=== PATIENT | female | born 1955 | race Caucasian/White ===

== ENCOUNTER 2022-07-14 14:47 | Outpatient (REF) | payer MEDICARE, OTHER, SELFPAY ==
[2022-07-14 15:09] LABS: MANUAL DIFF FLAG NO
[2022-07-14 17:01] LABS: Basophils Absolute Auto 0.1 X10*3/uL (0.0-0.2); Basophils Percent Auto 0.7 % (0-2); Eosinophils Absolute Auto 0.1 X10*3/uL (0.0-0.4); Eosinophils Percent Auto 1.7 % (0-4); Hematocrit 47.9 % (37.0-47.0); Hemoglobin 15.6 g/dl (12.0-16.0); Imm Gran Abs Auto 0.02 X10*3/uL (0.00-0.03); Imm Gran Pct Auto 0.3 % (0.0-0.4); Lymphocytes Absolute Auto 1.5 X10*3/uL (1.2-4.9); Lymphocytes Percent Auto 20.3 % (20-40); Mean Corpuscular HGB Conc 32.6 g/dl (31.0-35.0); Mean Corpuscular Hemoglobin 31.6 pg (27.0-33.0); Mean Platelet Volume 11.9 fL (9.4-12.3); Monocytes Absolute Auto 0.6 X10*3/uL (0.1-1.2); Monocytes Percent Auto 7.7 % (2-11); Neutrophils Percent Auto 69.3 % (45-73); Platelet Count 251 X10*3/uL (160-400); Red Blood Count 4.94 X10*6/uL (4.20-5.50); Red Cell Distribution Width 13.1 % (11.0-16.0); White Blood Count 7.2 X10*3/uL (4.8-10.8)
[2022-07-14 17:27] LABS: Anion Gap 15 (12-20); Blood Urea Nitrogen 14 mg/dL (9-16); Calcium 9.7 mg/dL (8.4-10.2); Carbon Dioxide 26 mmol/L (22-29); Chloride 105 mmol/L (96-108); Estimated Glomerular Filt Rate > 60; Glucose Random 105 mg/dL (60-115); Potassium 4.4 mmol/L (3.3-5.1); Sodium 142 mmol/L (135-145)
[2022-07-14 17:42] LABS: Thyroid Stimulating Hormone 2.29 uIU/mL (0.32-4.0)
[2022-07-14 18:12] LABS: Erythrocyte Sedimentation Rate 5 MM/HR (0-20)
[2022-07-21 19:14] LABS: Acetylcholine Recept. Blocking <15 (<15)
[2022-07-22 18:04] LABS: Acetylcholine Receptor Binding <0.30 nmol/L
[2022-07-27 17:33] LABS: Acetylcholine Recep Modulating 12
== END 2022-07-14 14:48 | disposition home or self-care (01) ==
LOC: HO.LAB 14:47
PROVIDERS: PCP Internal Medicine; Visit Provider Psychiatry & Neurology Neurology
DX: G47.00 Insomnia, unspecified (principal)
CPT/HCPCS: 36415; 80048; 82550; 83519; 84436; 84443; 85025; 85652

== ENCOUNTER 2022-08-05 10:43 | Outpatient (REF) | payer MEDICARE, OTHER, SELFPAY ==
[2022-08-05 13:19] LABS: Folate 7.3 ng/mL (> or = 4.0); Vitamin B12 241 pg/mL (200-900)
[2022-08-11 17:53] LABS: Methylmalonic Acid 165 nmol/L (87-318)
== END 2022-08-05 10:44 | disposition home or self-care (01) ==
LOC: HO.LAB 10:43
PROVIDERS: PCP Internal Medicine; Visit Provider Psychiatry & Neurology Neurology
DX: G31.84 Mild cognitive impairment of uncertain or unknown etiology (principal)
CPT/HCPCS: 36415; 82607; 82746; 83921

== ENCOUNTER 2022-08-31 11:56 | Outpatient (REF) | payer MEDICARE, OTHER, SELFPAY | END 2022-08-31 11:57 | disposition home or self-care (01) | LOC: HO.MDS 11:56 | PROVIDERS: Visit Provider Psychiatry & Neurology Neurology | DX: G61.81 Chronic inflammatory demyelinating polyneuritis (principal) | CPT/HCPCS: 96365; 96366; J1569 ==

== ENCOUNTER 2022-09-01 11:52 | Outpatient (REF) | payer MEDICARE, OTHER, SELFPAY | END 2022-09-01 11:53 | disposition home or self-care (01) | LOC: HO.MDS 11:52 | PROVIDERS: Visit Provider Psychiatry & Neurology Neurology | DX: G61.81 Chronic inflammatory demyelinating polyneuritis (principal) | CPT/HCPCS: 96365; 96366; J1569 ==

== ENCOUNTER 2022-09-02 11:54 | Outpatient (REF) | payer MEDICARE, OTHER, SELFPAY | END 2022-09-02 11:55 | disposition home or self-care (01) | LOC: HO.MDS 11:54 | PROVIDERS: Visit Provider Psychiatry & Neurology Neurology | DX: G61.81 Chronic inflammatory demyelinating polyneuritis (principal) | CPT/HCPCS: 96365; 96366; J1569 ==

== ENCOUNTER 2022-09-03 11:43 | Outpatient (REF) | payer MEDICARE, OTHER, SELFPAY | END 2022-09-03 11:44 | disposition home or self-care (01) | LOC: HO.MDS 11:43 | PROVIDERS: Visit Provider Psychiatry & Neurology Neurology | DX: G61.81 Chronic inflammatory demyelinating polyneuritis (principal) | CPT/HCPCS: 96365; 96366; J1569 ==

== ENCOUNTER 2022-09-04 11:42 | Outpatient (REF) | payer MEDICARE, OTHER, SELFPAY | END 2022-09-04 11:43 | disposition home or self-care (01) | LOC: HO.MDS 11:42 | PROVIDERS: Visit Provider Psychiatry & Neurology Neurology | DX: G61.81 Chronic inflammatory demyelinating polyneuritis (principal) | CPT/HCPCS: 96365; 96366; J1569 ==

== ENCOUNTER 2022-10-05 11:44 | Outpatient (REF) | payer MEDICARE, OTHER, SELFPAY | END 2022-10-05 11:45 | disposition home or self-care (01) | LOC: HO.MDS 11:44 | PROVIDERS: Visit Provider Psychiatry & Neurology Neurology | DX: G61.81 Chronic inflammatory demyelinating polyneuritis (principal) | CPT/HCPCS: 96365; 96366; J1569 ==

== ENCOUNTER 2022-10-06 11:54 | Outpatient (REF) | payer MEDICARE, OTHER, SELFPAY | END 2022-10-06 11:55 | disposition home or self-care (01) | LOC: HO.MDS 11:54 | PROVIDERS: Visit Provider Psychiatry & Neurology Neurology | DX: G61.81 Chronic inflammatory demyelinating polyneuritis (principal) | CPT/HCPCS: 96365; 96366; J1569 ==

== ENCOUNTER 2022-10-07 11:43 | Outpatient (REF) | payer MEDICARE, OTHER, SELFPAY | END 2022-10-07 11:44 | disposition home or self-care (01) | LOC: HO.MDS 11:43 | PROVIDERS: Visit Provider Psychiatry & Neurology Neurology | DX: G61.81 Chronic inflammatory demyelinating polyneuritis (principal) | CPT/HCPCS: 96365; 96366; J1569 ==

== ENCOUNTER 2022-10-08 11:35 | Outpatient (REF) | payer MEDICARE, OTHER, SELFPAY | END 2022-10-08 11:36 | disposition home or self-care (01) | LOC: HO.MDS 11:35 | PROVIDERS: Visit Provider Psychiatry & Neurology Neurology | DX: G61.81 Chronic inflammatory demyelinating polyneuritis (principal) | CPT/HCPCS: 96365; 96366; J1569 ==

== ENCOUNTER 2022-10-09 10:46 | Outpatient (REF) | payer MEDICARE, OTHER, SELFPAY | END 2022-10-09 10:47 | disposition home or self-care (01) | LOC: HO.MDS 10:46 | PROVIDERS: Visit Provider Psychiatry & Neurology Neurology | DX: G61.81 Chronic inflammatory demyelinating polyneuritis (principal) | CPT/HCPCS: 96365; 96366; J1569 ==

== ENCOUNTER 2022-10-23 13:32 | Outpatient (REF) | payer MEDICARE, OTHER, SELFPAY ==
--- NOTE | ~2022-10-23 | MR_ITS ---
EXAMINATION: MR BRAIN WITHOUT CONTRAST CLINICAL INFORMATION: Mild cognitive impairment. COMPARISON: None. TECHNIQUE: Multiplanar, multisequence imaging of the brain was performed without contrast. FINDINGS: No diffusion abnormalities are identified to suggest an acute infarct. No mass effect or midline shift is seen. 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 Mild chronic white matter microangiopathic changes noted. Generalized parenchymal volume loss noted with mild ex vacuo dilatation of the ventricles. No extra-axial fluid collections are seen. The brainstem and cerebellum are normal. The gradient refocused acquisition is normal. The craniovertebral junction, marrow signal, and midline structures are normal. The major intracranial flow voids at the level of the [place] of [place] are preserved. The dural venous sinus flow voids are maintained. The mastoid air cells and paranasal sinuses are well aerated. Of note, there are significant fatty atrophic changes in the tongue. MR/MR head/brain wo con IMPRESSION: No acute intracranial process. 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 Mild chronic white matter microangiopathy and generalized parenchymal volume loss.
== END 2022-10-23 13:33 | disposition home or self-care (01) ==
LOC: HO.MRI 13:32
PROVIDERS: PCP Internal Medicine; Visit Provider Psychiatry & Neurology Neurology
DX: G31.84 Mild cognitive impairment of uncertain or unknown etiology (principal)
CPT/HCPCS: 70551

== ENCOUNTER 2022-11-09 10:40 | Outpatient (REF) | payer MEDICARE, OTHER, SELFPAY | END 2022-11-09 10:41 | disposition home or self-care (01) | LOC: HO.MDS 10:40 | PROVIDERS: Visit Provider Psychiatry & Neurology Neurology | DX: G61.81 Chronic inflammatory demyelinating polyneuritis (principal) | CPT/HCPCS: 96365; 96366; J1569 ==

== ENCOUNTER 2022-11-10 10:58 | Outpatient (REF) | payer MEDICARE, OTHER, SELFPAY | END 2022-11-10 10:59 | disposition home or self-care (01) | LOC: HO.MDS 10:58 | PROVIDERS: Visit Provider Psychiatry & Neurology Neurology | DX: G61.81 Chronic inflammatory demyelinating polyneuritis (principal) | CPT/HCPCS: 96365; 96366; J1569 ==

== ENCOUNTER 2022-11-11 10:52 | Outpatient (REF) | payer MEDICARE, OTHER, SELFPAY | END 2022-11-11 10:53 | disposition home or self-care (01) | LOC: HO.MDS 10:52 | PROVIDERS: Visit Provider Psychiatry & Neurology Neurology | DX: G61.81 Chronic inflammatory demyelinating polyneuritis (principal) | CPT/HCPCS: 96365; 96366; J1569 ==

== ENCOUNTER 2022-11-12 10:51 | Outpatient (REF) | payer MEDICARE, OTHER, SELFPAY | END 2022-11-12 10:52 | disposition home or self-care (01) | LOC: HO.MDS 10:51 | PROVIDERS: Visit Provider Psychiatry & Neurology Neurology | DX: G61.81 Chronic inflammatory demyelinating polyneuritis (principal) | CPT/HCPCS: 96365; 96366; J1569 ==

== ENCOUNTER 2022-11-13 11:04 | Outpatient (REF) | payer MEDICARE, OTHER, SELFPAY | END 2022-11-13 11:05 | disposition home or self-care (01) | LOC: HO.MDS 11:04 | PROVIDERS: Visit Provider Psychiatry & Neurology Neurology | DX: G61.81 Chronic inflammatory demyelinating polyneuritis (principal) | CPT/HCPCS: 96365; 96366; J1569 ==

== ENCOUNTER 2022-12-03 12:00 | Day surgery (SDC) | payer MEDICARE, OTHER, SELFPAY ==
--- NOTE | ~2022-12-03 | IR_ITS ---
PROCEDURE: IR INSERTION OF SUBCUTANEOUS PORT WITH ULTRASOUND AND FLUOROSCOPIC GUIDANCE CLINICAL INFORMATION: 67-year-old female with need for long-term IV access. COMPARISON: None available. TECHNIQUE: All elements of maximal sterile barrier technique followed including use of cap, mask, sterile gown, sterile gloves, a sterile full body drape and hand hygiene. Also followed skin preparation with 2% chlorhexidine for cutaneous antisepsis, and sterile ultrasound preparation with sterile gel and probe cover when applicable. SENIOR INTEGRATION ARCHITECT: Leena Thompson MD FSIR ANESTHESIA: IV moderate sedation with intravenous fentanyl and Versed was administered under my direct supervision with continuous physiologic monitoring for a total of 17 minutes. Procedure in detail: Informed and written consent was obtained. The patient was positioned supine on the angiography table. Sterile preparation of the right neck and chest was performed. Ultrasound of the right neck showed a patent internal jugular vein. 1% lidocaine was injected subcutaneously and extended to the edge of the jugular vein under ultrasound guidance. A small incision was made in the skin with a #11 blade. Through the incision and under ultrasound guidance with permanent recordings and direct visualization of needle entry into the vein, the right internal jugular vein was catheterized in an antegrade fashion. Over a wire, the tract was dilated and the peel-away sheath was left in place. At the planned location for the port located below the right clavicle, 1% lidocaine with epinephrine was administered subcutaneously and the local anesthesia was extended along the planned subcutaneous tract for the catheter. A small incision was made in the skin with a #15 blade. Blunt dissection was performed to create a pocket for the port. Next, we tunneled the port catheter from the port site to the neck incision site. The catheter was inserted into the peel-away sheath. It terminates at the right atrium. We cut the catheter to length and connected it to the port, which was inserted into the pocket. The pocket was irrigated with antibiotic solution. The pocket was closed with interrupted 2-0 Vicryl suture. Topical Dermabond was applied. An overlying sterile dressing was placed. The port was tested and flushes and aspirates appropriately. It was locked with heparin. A saved fluoroscopic image shows that the catheter terminates in the right atrium. Summary: Successful placement of a subcutaneous port via the right internal jugular vein under fluoroscopic and ultrasound guidance.
[2022-12-03 12:15] LABS: MANUAL DIFF FLAG NO
[2022-12-03 12:16] LABS: Basophils Percent Auto 0.2 % (0-2); Eosinophils Percent Auto 0.2 % (0-4); Hematocrit 43.2 % (37.0-47.0); Hemoglobin 14.3 g/dl (12.0-16.0); Imm Gran Abs Auto 0.05 X10*3/uL (0.00-0.03); Imm Gran Pct Auto 0.5 % (0.0-0.4); Lymphocytes Absolute Auto 1.8 X10*3/uL (1.2-4.9); Lymphocytes Percent Auto 18.1 % (20-40); Mean Corpuscular HGB Conc 33.1 g/dl (31.0-35.0); Mean Corpuscular Hemoglobin 32.2 pg (27.0-33.0); Mean Corpuscular Volume 97.3 fL (80.0-98.0); Mean Platelet Volume 9.8 fL (9.4-12.3); Monocytes Absolute Auto 0.4 X10*3/uL (0.1-1.2); Monocytes Percent Auto 3.9 % (2-11); Neutrophils Absolute Auto 7.5 x10*3/uL (2.0-8.3); Neutrophils Percent Auto 77.1 % (45-73); Platelet Count 221 X10*3/uL (160-400); Red Blood Count 4.44 X10*6/uL (4.20-5.50); Red Cell Distribution Width 14.4 % (11.0-16.0); White Blood Count 9.8 X10*3/uL (4.8-10.8)
[2022-12-03 12:17] VITALS: BMI 25.7
[2022-12-03 12:22] LABS: INTERNATIONAL NORM RATIO 0.8 (0.9-1.1); Prothrombin Time 9.9 SEC (11.1-13.3)
[2022-12-03 12:25] LABS: Partial Thromboplastin Time 25.9 SEC (26.0-36.4)
[2022-12-03 12:32] LABS: Anion Gap 17 (12-20); Blood Urea Nitrogen 14 mg/dL (9-16); Carbon Dioxide 23 mmol/L (22-29); Chloride 103 mmol/L (96-108); Creatinine Clr Calc Pharmacy 62.2; Estimated Glomerular Filt Rate > 60; Potassium 4.5 mmol/L (3.3-5.1); Sodium 138 mmol/L (135-145)
[2022-12-03] MEDS: Heparin Sodium,Porcine Flush 500 UNIT/5 ML SYRINGE IVFLUSH (15:36)
[2022-12-03] MEDS: Lidocaine HCl 1%/Epi 1:100,000 10 ML VIAL INFILTRATI (15:36)
[2022-12-03] MEDS: Lidocaine HCl 1 % MPF 30 ML VIAL 20 ML SUBCUT (15:37)
[2022-12-03 15:40] VITALS: BP 137/79; PULSE 83; RESP 15; TEMP 36.2; O2SAT 98
[2022-12-03 15:55] VITALS: BP 133/72; PULSE 91; RESP 13; O2SAT 98
[2022-12-03 16:10] VITALS: BP 150/85; PULSE 89; RESP 18; TEMP 36.8; O2SAT 99
== END 2022-12-03 16:43 | disposition home or self-care (01) ==
PROVIDERS: Radiology Diagnostic Radiology; Radiology Vascular & Interventional Radiology; PCP Internal Medicine; Visit Provider Psychiatry & Neurology Neurology
DX: G61.81 Chronic inflammatory demyelinating polyneuritis (principal); G31.84 Mild cognitive impairment of uncertain or unknown etiology; G62.9 Polyneuropathy, unspecified; I10 Essential (primary) hypertension; M19.90 Unspecified osteoarthritis, unspecified site; Z79.899 Other long term (current) drug therapy; Z98.890 Other specified postprocedural states
CPT/HCPCS: 36415; 36561; 76937; 80051; 82565; 84520; 85025; 85610; 85730; 99152; C1769; C1788; J0690; J1642; J2250; J3010

== ENCOUNTER → 2022-12-03 13:40 | Outpatient (BNV) | payer MEDICARE, OTHER, SELFPAY | PROVIDERS: PCP Internal Medicine; Visit Provider Radiology Vascular & Interventional Radiology | DX: R18.8 Other ascites (principal) | CPT/HCPCS: 36561; 49083; 76937; 77001 ==

== ENCOUNTER 2022-12-07 10:43 | Outpatient (REF) | payer MEDICARE, OTHER, SELFPAY | END 2022-12-07 10:44 | disposition home or self-care (01) | LOC: HO.MDS 10:43 | PROVIDERS: Visit Provider Psychiatry & Neurology Neurology | DX: G61.81 Chronic inflammatory demyelinating polyneuritis (principal) | CPT/HCPCS: 96365; 96366; J1569 ==

== ENCOUNTER 2022-12-08 10:58 | Outpatient (REF) | payer MEDICARE, OTHER, SELFPAY | END 2022-12-08 10:59 | disposition home or self-care (01) | LOC: HO.MDS 10:58 | PROVIDERS: Visit Provider Psychiatry & Neurology Neurology | DX: G61.81 Chronic inflammatory demyelinating polyneuritis (principal) | CPT/HCPCS: 96365; 96366; J1569; J1642 ==

== ENCOUNTER 2022-12-09 10:50 | Outpatient (REF) | payer MEDICARE, OTHER, SELFPAY | END 2022-12-09 10:51 | disposition home or self-care (01) | LOC: HO.MDS 10:50 | PROVIDERS: Visit Provider Psychiatry & Neurology Neurology | DX: G61.81 Chronic inflammatory demyelinating polyneuritis (principal) | CPT/HCPCS: 96365; 96366; J1569; J1642 ==

== ENCOUNTER 2022-12-10 10:53 | Outpatient (REF) | payer MEDICARE, OTHER, SELFPAY | END 2022-12-10 10:54 | disposition home or self-care (01) | LOC: HO.MDS 10:53 | PROVIDERS: Visit Provider Psychiatry & Neurology Neurology | DX: G61.81 Chronic inflammatory demyelinating polyneuritis (principal) | CPT/HCPCS: 96365; 96366; J1569; J1642 ==

== ENCOUNTER 2022-12-11 10:36 | Outpatient (REF) | payer MEDICARE, OTHER, SELFPAY | END 2022-12-11 10:37 | disposition home or self-care (01) | LOC: HO.MDS 10:36 | PROVIDERS: Visit Provider Psychiatry & Neurology Neurology | DX: G61.81 Chronic inflammatory demyelinating polyneuritis (principal) | CPT/HCPCS: 96365; 96366; J1569; J1642 ==

== ENCOUNTER 2023-01-04 10:37 | Outpatient (REF) | payer MEDICARE, OTHER, SELFPAY | END 2023-01-04 10:38 | disposition home or self-care (01) | LOC: HO.MDS 10:37 | PROVIDERS: Visit Provider Psychiatry & Neurology Neurology | DX: G61.81 Chronic inflammatory demyelinating polyneuritis (principal) | CPT/HCPCS: 96365; 96366; J1569; J1642 ==

== ENCOUNTER 2023-01-05 10:45 | Outpatient (REF) | payer MEDICARE, OTHER, SELFPAY | END 2023-01-05 10:46 | disposition home or self-care (01) | LOC: HO.MDS 10:45 | PROVIDERS: Visit Provider Psychiatry & Neurology Neurology | DX: G61.81 Chronic inflammatory demyelinating polyneuritis (principal) | CPT/HCPCS: 96365; 96366; J1569; J1642 ==

== ENCOUNTER 2023-01-06 10:42 | Outpatient (REF) | payer MEDICARE, OTHER, SELFPAY | END 2023-01-06 10:43 | disposition home or self-care (01) | LOC: HO.MDS 10:42 | PROVIDERS: Visit Provider Psychiatry & Neurology Neurology | DX: G61.81 Chronic inflammatory demyelinating polyneuritis (principal) | CPT/HCPCS: 96365; 96366; J1569; J1642 ==

== ENCOUNTER 2023-01-07 10:38 | Outpatient (REF) | payer MEDICARE, OTHER, SELFPAY | END 2023-01-07 10:39 | disposition home or self-care (01) | LOC: HO.MDS 10:38 | PROVIDERS: Visit Provider Psychiatry & Neurology Neurology | DX: G61.81 Chronic inflammatory demyelinating polyneuritis (principal) | CPT/HCPCS: 96365; 96366; J1569; J1642 ==

== ENCOUNTER 2023-01-08 10:32 | Outpatient (REF) | payer MEDICARE, OTHER, SELFPAY | END 2023-01-08 10:33 | disposition home or self-care (01) | LOC: HO.MDS 10:32 | PROVIDERS: Visit Provider Psychiatry & Neurology Neurology | DX: G61.81 Chronic inflammatory demyelinating polyneuritis (principal) | CPT/HCPCS: 96365; 96366; J1569; J1642 ==

== ENCOUNTER 2023-02-01 10:38 | Outpatient (REF) | payer MEDICARE, OTHER, SELFPAY | END 2023-02-01 10:39 | disposition home or self-care (01) | LOC: HO.MDS 10:38 | PROVIDERS: Visit Provider Psychiatry & Neurology Neurology | DX: G61.81 Chronic inflammatory demyelinating polyneuritis (principal) | CPT/HCPCS: 96365; 96366; J1569; J1642 ==

== ENCOUNTER 2023-02-02 10:32 | Outpatient (REF) | payer MEDICARE, OTHER, SELFPAY | END 2023-02-02 10:33 | disposition home or self-care (01) | LOC: HO.MDS 10:32 | PROVIDERS: PCP Internal Medicine; Visit Provider Psychiatry & Neurology Neurology | DX: G61.81 Chronic inflammatory demyelinating polyneuritis (principal) | CPT/HCPCS: 96365; 96366; J1569; J1642 ==

== ENCOUNTER 2023-02-03 10:40 | Outpatient (REF) | payer MEDICARE, OTHER, SELFPAY | END 2023-02-03 10:41 | disposition home or self-care (01) | LOC: HO.MDS 10:40 | PROVIDERS: Visit Provider Psychiatry & Neurology Neurology | DX: G61.81 Chronic inflammatory demyelinating polyneuritis (principal) | CPT/HCPCS: 96365; 96366; J1569; J1642 ==

== ENCOUNTER 2023-02-04 10:32 | Outpatient (REF) | payer MEDICARE, OTHER, SELFPAY | END 2023-02-04 10:33 | disposition home or self-care (01) | LOC: HO.MDS 10:32 | PROVIDERS: Visit Provider Psychiatry & Neurology Neurology | DX: G61.81 Chronic inflammatory demyelinating polyneuritis (principal) | CPT/HCPCS: 96365; 96366; J1569; J1642 ==

== ENCOUNTER 2023-02-05 10:55 | Outpatient (REF) | payer MEDICARE, OTHER, SELFPAY | END 2023-02-05 10:56 | disposition home or self-care (01) | LOC: HO.MDS 10:55 | PROVIDERS: PCP Internal Medicine; Visit Provider Psychiatry & Neurology Neurology | DX: G61.81 Chronic inflammatory demyelinating polyneuritis (principal) | CPT/HCPCS: 96365; 96366; J1569; J1642 ==

== ENCOUNTER 2023-03-01 13:41 | Outpatient (REF) | payer MEDICARE, OTHER, SELFPAY | END 2023-03-01 13:42 | disposition home or self-care (01) | LOC: HO.MDS 13:41 | PROVIDERS: Visit Provider Psychiatry & Neurology Neurology | DX: G61.81 Chronic inflammatory demyelinating polyneuritis (principal) | CPT/HCPCS: 96365; 96366; J1569; J1642 ==

== ENCOUNTER 2023-03-02 10:42 | Outpatient (REF) | payer MEDICARE, OTHER, SELFPAY | END 2023-03-02 10:43 | disposition home or self-care (01) | LOC: HO.MDS 10:42 | PROVIDERS: Visit Provider Psychiatry & Neurology Neurology | DX: G61.81 Chronic inflammatory demyelinating polyneuritis (principal) | CPT/HCPCS: 96365; 96366; J1569; J1642 ==

== ENCOUNTER 2023-03-03 11:00 | Outpatient (REF) | payer MEDICARE, OTHER, SELFPAY | END 2023-03-03 11:01 | disposition home or self-care (01) | LOC: HO.MDS 11:00 | PROVIDERS: Visit Provider Psychiatry & Neurology Neurology | DX: G61.81 Chronic inflammatory demyelinating polyneuritis (principal) | CPT/HCPCS: 96365; 96366; J1569; J1642 ==

== ENCOUNTER 2023-03-04 10:43 | Outpatient (REF) | payer MEDICARE, OTHER, SELFPAY | END 2023-03-04 10:44 | disposition home or self-care (01) | LOC: HO.MDS 10:43 | PROVIDERS: Visit Provider Psychiatry & Neurology Neurology | DX: G61.81 Chronic inflammatory demyelinating polyneuritis (principal) | CPT/HCPCS: 96365; 96366; J1569; J1642 ==

== ENCOUNTER 2023-03-05 10:39 | Outpatient (REF) | payer MEDICARE, OTHER, SELFPAY | END 2023-03-05 10:40 | disposition home or self-care (01) | LOC: HO.MDS 10:39 | PROVIDERS: Visit Provider Psychiatry & Neurology Neurology | DX: G61.81 Chronic inflammatory demyelinating polyneuritis (principal) | CPT/HCPCS: 96365; 96366; J1569; J1642 ==

== ENCOUNTER 2023-04-19 10:38 | Outpatient (REF) | payer MEDICARE, OTHER, SELFPAY | END 2023-04-19 10:39 | disposition home or self-care (01) | LOC: HO.MDS 10:38 | PROVIDERS: Visit Provider Psychiatry & Neurology Neurology | DX: G61.81 Chronic inflammatory demyelinating polyneuritis (principal) | CPT/HCPCS: 96365; 96366; J1569; J1642 ==

== ENCOUNTER 2023-04-20 10:44 | Outpatient (REF) | payer MEDICARE, OTHER, SELFPAY ==
[2023-04-20] VITALS (7 sets, daily range): BP systolic 102–128; BP diastolic 58–75; PULSE 73–85; RESP 18; TEMP 37.4; O2SAT 98–99; BMI 27.1
[2023-04-20] MEDS: Immun Glob G(IgG)/Gly/IGA Ov50 300 ML IV (11:51)
== END 2023-04-20 10:45 | disposition home or self-care (01) ==
LOC: HO.MDS 10:44
PROVIDERS: Visit Provider Psychiatry & Neurology Neurology
DX: G61.81 Chronic inflammatory demyelinating polyneuritis (principal)
CPT/HCPCS: 96365; 96366; J1569; J1642

== ENCOUNTER 2023-04-21 10:45 | Outpatient (REF) | payer MEDICARE, OTHER, SELFPAY ==
[2023-04-21 11:03] VITALS: BMI 27.1
[2023-04-21 11:09] VITALS: PULSE 72; RESP 18; TEMP 36.7; O2SAT 98
[2023-04-21] MEDS: Heparin Sodium,Porcine Flush 50 UNITS, 0.9 % Sodium Chloride Flush 5 ML IVFLUSH ×2 (11:10→14:30)
[2023-04-21] MEDS: Immun Glob G(IgG)/Gly/IGA Ov50 300 ML IV (11:22)
[2023-04-21 12:12] VITALS: BP 127/69; PULSE 70; RESP 18
[2023-04-21 13:12] VITALS: BP 114/67; PULSE 71; RESP 18
[2023-04-21 14:10] VITALS: BP 105/60; PULSE 78; RESP 18
== END 2023-04-21 10:46 | disposition home or self-care (01) ==
LOC: HO.MDS 10:45
PROVIDERS: Visit Provider Psychiatry & Neurology Neurology
DX: G61.81 Chronic inflammatory demyelinating polyneuritis (principal)
CPT/HCPCS: 96365; 96366; J1569; J1642

== ENCOUNTER 2023-04-22 10:53 | Outpatient (REF) | payer MEDICARE, OTHER, SELFPAY ==
[2023-04-22] VITALS (7 sets, daily range): BP systolic 107–138; BP diastolic 58–85; PULSE 61–85; RESP 18; TEMP 36.6; O2SAT 97; BMI 27.1
[2023-04-22] MEDS: Immun Glob G(IgG)/Gly/IGA Ov50 300 ML IV (11:14)
[2023-04-22] MEDS: Heparin Sodium,Porcine Flush 50 UNITS, 0.9 % Sodium Chloride Flush 5 ML IVFLUSH (13:44)
== END 2023-04-22 10:54 | disposition home or self-care (01) ==
LOC: HO.MDS 10:53
PROVIDERS: Visit Provider Psychiatry & Neurology Neurology
DX: G61.81 Chronic inflammatory demyelinating polyneuritis (principal)
CPT/HCPCS: 96365; 96366; J1569; J1642

== ENCOUNTER 2023-04-23 10:45 | Outpatient (REF) | payer MEDICARE, OTHER, SELFPAY ==
[2023-04-23 10:59] VITALS: BP 135/78; PULSE 78; RESP 18; TEMP 36.7; O2SAT 98
[2023-04-23 11:10] VITALS: BP 143/74; PULSE 71
[2023-04-23] MEDS: Immun Glob G(IgG)/Gly/IGA Ov50 300 ML IV (11:10)
[2023-04-23 11:40] VITALS: BP 135/88; PULSE 87
[2023-04-23 11:47] VITALS: BP 118/75; PULSE 74
[2023-04-23 11:56] VITALS: BP 140/85; PULSE 85
[2023-04-23 12:31] VITALS: BP 110/59; PULSE 88; RESP 18
== END 2023-04-23 10:46 | disposition home or self-care (01) ==
LOC: HO.MDS 10:45
PROVIDERS: Visit Provider Psychiatry & Neurology Neurology
DX: G61.81 Chronic inflammatory demyelinating polyneuritis (principal)
CPT/HCPCS: 96365; 96366; J1569; J1642

== ENCOUNTER 2024-03-28 11:00 | Outpatient (RCR) | payer MEDICARE, OTHER, SELFPAY ==
[2023-05-24] VITALS (8 sets, daily range): BP systolic 102–125; BP diastolic 51–73; PULSE 74–85; RESP 16; TEMP 36.6; O2SAT 99
[2023-05-24] MEDS: Immun Glob G(IgG)/Gly/IGA Ov50 300 ML IV (11:15)
[2023-05-24] MEDS: 0.9 % Sodium Chloride Flush 10 ML SYRINGE 5 ML IVFLUSH (13:41)
[2023-05-24] MEDS: Heparin Sodium,Porcine Flush 50 UNITS/5 ML SYRINGE IVFLUSH (13:41)
[2023-05-25] VITALS (7 sets, daily range): BP systolic 104–134; BP diastolic 67–87; PULSE 71–83; RESP 20; TEMP 36.6; O2SAT 97
[2023-05-25] MEDS: Immun Glob G(IgG)/Gly/IGA Ov50 300 ML IV (10:45)
[2023-05-25] MEDS: 0.9 % Sodium Chloride Flush 10 ML SYRINGE 5 ML IVFLUSH (13:02)
[2023-05-25] MEDS: Heparin Sodium,Porcine Flush 50 UNITS/5 ML SYRINGE IVFLUSH (13:03)
[2023-05-26] VITALS (8 sets, daily range): BP systolic 100–136; BP diastolic 61–80; PULSE 69–85; RESP 16–18; TEMP 36.7; O2SAT 98
[2023-05-26] MEDS: Immun Glob G(IgG)/Gly/IGA Ov50 300 ML IV (10:55)
--- NOTE | 2023-05-26 12:27 | HO.INF ---
apply skin prep prior to applying port dressing; pt skin becomes red/irritated with lone port dressing.
[2023-05-26] MEDS: Heparin Sodium,Porcine Flush 50 UNITS/5 ML SYRINGE IVFLUSH (13:14)
[2023-05-26] MEDS: 0.9 % Sodium Chloride Flush 10 ML SYRINGE 5 ML IVFLUSH (13:14)
[2023-05-27] VITALS (7 sets, daily range): BP systolic 109–140; BP diastolic 54–82; PULSE 70–84; RESP 16; TEMP 36.2; O2SAT 98
[2023-05-27] MEDS: Immun Glob G(IgG)/Gly/IGA Ov50 300 ML IV (10:15)
[2023-05-27] MEDS: 0.9 % Sodium Chloride Flush 10 ML SYRINGE 5 ML IVFLUSH (12:27)
[2023-05-27] MEDS: Heparin Sodium,Porcine Flush 50 UNITS/5 ML SYRINGE IVFLUSH (12:30)
[2023-05-28] VITALS (7 sets, daily range): BP systolic 111–147; BP diastolic 65–87; PULSE 72–80; RESP 18; TEMP 36.4; O2SAT 97
[2023-05-28] MEDS: 0.9 % Sodium Chloride Flush 10 ML SYRINGE 5 ML IVFLUSH (13:03)
[2023-05-28] MEDS: Heparin Sodium,Porcine Flush 500 UNIT/5 ML SYRINGE IVFLUSH (13:04)
[2023-06-28] VITALS (8 sets, daily range): BP systolic 114–159; BP diastolic 54–81; PULSE 66–73; RESP 14
[2023-06-28] MEDS: Immun Glob G(IgG)/Gly/IGA Ov50 300 ML IV (11:00)
[2023-06-28] MEDS: Heparin Sodium,Porcine Flush 50 UNITS/5 ML SYRINGE IVFLUSH (13:14)
[2023-06-28] MEDS: 0.9 % Sodium Chloride Flush 10 ML SYRINGE 5 ML IVFLUSH (13:14)
[2023-06-29] VITALS (8 sets, daily range): BP systolic 116–124; BP diastolic 61–82; PULSE 71–81; RESP 16–18; TEMP 36.9; O2SAT 99
[2023-06-29] MEDS: Immun Glob G(IgG)/Gly/IGA Ov50 300 ML IV (10:40)
[2023-06-29] MEDS: Heparin Sodium,Porcine Flush 50 UNITS/5 ML SYRINGE IVFLUSH (13:07)
--- NOTE | 2023-06-29 13:18 | HO.INF ---
sterile port dressing chnage with skin prep done d/t mild skin irritation to skin area left of dressing.
[2023-06-30] VITALS (8 sets, daily range): BP systolic 102–115; BP diastolic 64–76; PULSE 67–75; RESP 16; TEMP 37.2; O2SAT 99
[2023-06-30] MEDS: Immun Glob G(IgG)/Gly/IGA Ov50 300 ML IV (10:55)
[2023-06-30] MEDS: 0.9 % Sodium Chloride Flush 10 ML SYRINGE 5 ML IVFLUSH (13:15)
[2023-06-30] MEDS: Heparin Sodium,Porcine Flush 50 UNITS/5 ML SYRINGE IVFLUSH (13:19)
[2023-07-01] VITALS (7 sets, daily range): BP systolic 119–152; BP diastolic 65–80; PULSE 69–81; RESP 16; TEMP 37; O2SAT 99
[2023-07-01] MEDS: 0.9 % Sodium Chloride Flush 10 ML SYRINGE 5 ML IVFLUSH (10:30)
[2023-07-01] MEDS: Immun Glob G(IgG)/Gly/IGA Ov50 300 ML IV (10:34)
[2023-07-01] MEDS: Heparin Sodium,Porcine Flush 50 UNITS/5 ML SYRINGE IVFLUSH (12:49)
[2023-07-02 10:42] VITALS: BP 123/53; PULSE 83; RESP 18; TEMP 36.8; O2SAT 99
[2023-07-02] MEDS: Immun Glob G(IgG)/Gly/IGA Ov50 300 ML IV (10:43)
[2023-07-02 11:00] VITALS: BP 122/75; PULSE 74
[2023-07-02 11:15] VITALS: BP 130/67; PULSE 76
[2023-07-02 11:45] VITALS: BP 122/91; PULSE 84
[2023-07-02 12:16] VITALS: BP 111/70; PULSE 79
[2023-07-02 12:45] VITALS: BP 126/73; PULSE 77
[2023-07-02] MEDS: Heparin Sodium,Porcine Flush 500 UNIT/5 ML SYRINGE IVFLUSH (13:00)
[2023-08-02] VITALS (7 sets, daily range): BP systolic 112–179; BP diastolic 55–86; PULSE 68–83; RESP 16–18; TEMP 36.6; O2SAT 99
[2023-08-02] MEDS: 0.9 % Sodium Chloride Flush 10 ML SYRINGE 5 ML IVFLUSH (10:56)
[2023-08-02] MEDS: Immun Glob G(IgG)/Gly/IGA Ov50 300 ML IV (11:00)
[2023-08-02] MEDS: Heparin Sodium,Porcine Flush 50 UNITS/5 ML SYRINGE IVFLUSH (13:22)
[2023-08-03] VITALS (8 sets, daily range): BP systolic 98–134; BP diastolic 66–89; PULSE 73–84; RESP 16–18; TEMP 36.9; O2SAT 100
[2023-08-03] MEDS: Immun Glob G(IgG)/Gly/IGA Ov50 300 ML IV (10:52)
[2023-08-03] MEDS: Heparin Sodium,Porcine Flush 50 UNITS/5 ML SYRINGE IVFLUSH (13:10)
[2023-08-04 10:41] VITALS: BP 138/69; PULSE 82; RESP 16; TEMP 37; O2SAT 97
[2023-08-04] MEDS: Immun Glob G(IgG)/Gly/IGA Ov50 300 ML IV (10:44)
[2023-08-04 10:59] VITALS: BP 102/76; PULSE 75; RESP 16
[2023-08-04 11:14] VITALS: BP 135/76; PULSE 71; RESP 16
[2023-08-04 11:47] VITALS: BP 135/79; PULSE 66; RESP 16
[2023-08-04 12:15] VITALS: BP 127/75; PULSE 66; RESP 16
[2023-08-04 12:45] VITALS: BP 135/76; PULSE 68; RESP 16
[2023-08-04] MEDS: Heparin Sodium,Porcine Flush 50 UNITS/5 ML SYRINGE IVFLUSH (13:02)
[2023-08-05] VITALS (7 sets, daily range): BP systolic 109–149; BP diastolic 65–88; PULSE 67–76; RESP 16–18; TEMP 36.3
[2023-08-05] MEDS: Immun Glob G(IgG)/Gly/IGA Ov50 300 ML IV (10:51)
[2023-08-05] MEDS: Heparin Sodium,Porcine Flush 50 UNITS/5 ML SYRINGE IVFLUSH (13:21)
[2023-08-06] VITALS (7 sets, daily range): BP systolic 115–152; BP diastolic 67–87; PULSE 70–80; RESP 16–20; TEMP 36.6; O2SAT 97
[2023-08-06] MEDS: Immun Glob G(IgG)/Gly/IGA Ov50 300 ML IV (10:30)
[2023-08-06] MEDS: 0.9 % Sodium Chloride Flush 10 ML SYRINGE 5 ML IVFLUSH (10:30)
[2023-08-06] MEDS: Heparin Sodium,Porcine Flush 500 UNIT/5 ML SYRINGE IVFLUSH (12:48)
[2023-09-09 10:49] VITALS: BP 112/79; PULSE 86; RESP 20; TEMP 37.2; O2SAT 100
[2023-09-09] MEDS: 0.9 % Sodium Chloride Flush 10 ML SYRINGE 5 ML IVFLUSH (11:01)
[2023-09-09] MEDS: Heparin Sodium,Porcine Flush 500 UNIT/5 ML SYRINGE IVFLUSH (11:08)
[2023-10-12 12:41] VITALS: BP 131/84; PULSE 74; RESP 18; TEMP 36.7; O2SAT 97
[2023-10-12] MEDS: 0.9 % Sodium Chloride Flush 10 ML SYRINGE 5 ML IVFLUSH (12:48)
[2023-10-12] MEDS: Heparin Sodium,Porcine Flush 500 UNIT/5 ML SYRINGE IVFLUSH (12:49)
--- NOTE | 2023-10-12 13:01 | HO.INF ---
SPOKE WITH PATIENT REGARDING CONTINUATION OF IVIG. SHE STATED HER DOCTOR IN [place] DOES NOT WANT HER TO RECEIVE ANY MORE. SHE ONLY NEEDS THE PORT FLUSHED MONTHLY. 11:[address] AM [address]ED TO DR. LEARY'S OFFICE UPDATED ON INFORMATION REGARDING IVIG- REQUESTED RETURN CALL . PATIENT ARRIVED TO SCHEDULED APPT. CONTINUED TO STATE SHE IS NOT GETTING IVIG ANY MORE PER MD IN [place]. 2ND CALL PLACED TO 'S OFFICE INFORMED THEM OF PATIENTS REFUSAL FOR IVIG PER MD IN [place]- REQUESTED RETURN CALL. PORT FLUSHED PER PROTOCOL. TOLERATE WELL, PORT FLUSHED WITHOUT RESISTANCE- BAND AID OVER SITE.
[2023-11-09 11:51] VITALS: BP 136/91; PULSE 73; RESP 18; TEMP 36.7; O2SAT 100
[2023-11-09] MEDS: Heparin Sodium,Porcine Flush 500 UNIT/5 ML SYRINGE IVFLUSH (12:01)
[2023-12-09 11:41] VITALS: BP 145/79; PULSE 71; RESP 16; TEMP 36.8; O2SAT 100
[2023-12-09] MEDS: Heparin Sodium,Porcine Flush 500 UNIT/5 ML SYRINGE IVFLUSH (11:53)
[2024-01-10 11:29] VITALS: BP 147/73; PULSE 69; RESP 16; TEMP 36.7; O2SAT 98
[2024-01-10] MEDS: Heparin Sodium,Porcine Flush 500 UNIT/5 ML SYRINGE IVFLUSH (11:31)
[2024-02-25 11:43] VITALS: BP 136/81; PULSE 86; RESP 20; TEMP 37; O2SAT 99
[2024-03-28 10:39] VITALS: BP 157/72; PULSE 71; RESP 16; TEMP 37.1; O2SAT 99
== END 2024-04-17 09:12 | disposition home or self-care (01) ==
LOC: HO.INF 11:00
PROVIDERS: Visit Provider Internal Medicine
DX: G61.81 Chronic inflammatory demyelinating polyneuritis (principal)
CPT/HCPCS: 96365; 96366; 96374; 96523; J1569; J1642